=== PATIENT | female | born 1970 | race Two or more races ===

== ENCOUNTER 2024-12-14 10:19 | Emergency (ER) | payer OTHER ==
[~2024-12-14] VITALS: Ht 160 cm; Wt 74.8 kg
[2024-12-14] MEDS ORDERED: ORPHENADRINE CITRATE 30 MG/ML AMPUL IM STA (10:35)
[2024-12-14] MEDS ORDERED: KETOROLAC TROMETHAMINE 15 MG VIAL IV STA (10:35)
[2024-12-14] MEDS ORDERED: METHYLPREDNISOLONE SOD SUCC 40 MG VIAL IV STA (10:36)
[2024-12-14] MEDS ORDERED: KETOROLAC TROMETHAMINE 30 MG VIAL ONE ×2 (10:45→10:53)
[2024-12-14] MEDS ORDERED: ORPHENADRINE CITRATE 30 MG/ML AMPUL ONE (10:46)
[2024-12-14] MEDS ORDERED: METHYLPREDNISOLONE SOD SUCC 40 MG VIAL ONE (10:46)
[2024-12-14 11:35] LABS: BASO % 0.9 % (0.1-1.2); EOS # 0.13 (0.04-0.54); EOS % 1.9 % (0.7-7.0); HEMATOCRIT 40.9 % (34.1-44.9); HEMOGLOBIN 14.2 g/dL (11.2-15.7); LYMPH # 1.67 (1.18-3.74); MEAN CORPUSCULAR HEMOGLOBIN 29.5 pg (25.6-32.2); MONO # 0.69 (0.24-0.82); MONO % 9.9 % (4.7-12.5); NEUT # 4.39 (1.56-6.13); PLATELET COUNT 369 K/uL (163-369); RED BLOOD COUNT 4.82 M/uL (3.93-5.22); RED CELL DISTRIBUTION WIDTH 12.8 % (11.6-14.4)
[2024-12-14] MEDS ORDERED: DICLOFENAC SODI50 MG PO (13:50)
[2024-12-14] MEDS ORDERED: NORFLEX100MG PO (13:50)
== END 2024-12-14 14:07 ==
LOC: ER 10:19
PROVIDERS: Emergency Medicine
DX: M94.0 Chondrocostal junction syndrome [Tietze] (principal); R07.89 Other chest pain; Z88.3 Allergy status to other anti-infective agents; Z88.9 Allergy status to unspecified drugs, medicaments and biological substances